=== PATIENT | male | born 1950 | race Caucasian/White ===

== ENCOUNTER 2019-12-11 13:34 | Outpatient (CLI) | payer MEDICARE, SELFPAY ==
--- NOTE | ~2019-12-11 | XR_ITS ---
XR lumbar spine 2-3V DATE: 12/11/2019 14:10 INDICATION: Low back pain TECHNIQUE: AP, lateral, coned lateral lumbosacral views COMPARISON: None FINDINGS: There are bilateral L5 pars interarticularis defects with associated grade 2 anterolisthesi s at L5-S1. There is severe degenerative disc disease at L5-S1. There is moderate degenerative disc disease at L2-3, L3-4. Diffuse osteopenia. No fracture or bone destruction is evident. The included lower thoracic and lumbar pedicles appear in tact. The sacroiliac joints are partially visualized and appear unremarkable. IMPRESSION: Bilateral L5 pars interarticularis defects with associated grade 2 anterolisthesis at L5- S1 Multilevel degenerative disc disease, most severe at L5-S1 Osteopenia Reviewed, dictated and finalized at location B. IMPRESSION: Bilateral L5 pars interarticularis defects with associated grade 2 anterolisthesis at L5-S1 Multilevel degenerative disc disease, most severe at L5-S1 Osteopenia
--- NOTE | ~2019-12-11 | XR_ITS ---
XR sacroiliac joints min 3V DATE: 12/11/2019 14:10 INDICATION: Low back pain TECHNIQUE: AP and bilateral oblique views COMPARISON: None FINDINGS: Severe degenerative disc disease is noted at L5-S1. The sacroiliac joints appear intact, without evidence of fracture, diastases, erosive changes or anky losis. IMPRESSION: Negative sacroiliac joints Severe degenerative disc disease at L5-S1 Reviewed, dictated and finalized at Location A. Reviewed, dictated and finalized at location B.
== END 2019-12-11 13:35 | disposition home or self-care (01) ==
LOC: CHSIMG 13:41
PROVIDERS: PCP Internal Medicine; Visit Provider Internal Medicine
DX: M54.5 Low back pain (principal)
CPT/HCPCS: 72100; 72202

== ENCOUNTER 2020-01-13 17:00 | Outpatient (RCR) | payer MEDICARE, SELFPAY ==
--- NOTE | 2020-01-13 17:48 | PTOPEVAL ---
Thank you for referring Jose Andrade to [facility] [place] [facility] The patient is scheduled to be seen for therapy? ____x/week for ___ weeks. Please review, sign, date and return this plan of care GUIDO. I agree with and certify that the following plan of care is medically necessary. Referring Physician Date Admitting Provider: Attending Provider: Melchor Gonzalez, Referring Provider: *PT Outpatient Evaluation Start: 01/13/20 16:54 Freq: Status: Active Protocol: Document 01/13/20 16:55 ANDREA (Rec: 01/13/20 17:42 ANDREA [id number]) Therapy Assessment Status Assessment Status Assessment Status Evaluation Outpatient Past Medical History Neurological History Hx Neurological Disorders No Significant History Cardiovascular History Hx Hypertension Yes Respiratory History Hx Respiratory Disorders No Significant History Gastrointestinal History Hx Gastrointestinal Disorders No Significant History Genitourinary History Hx Benign Prostatic Hyperplasia Yes Musculoskeletal History Hx Arthritis Yes Hx Back Pain Yes Hx Fractures Yes: LT ANKLE Hx Orthopedic Surgery Yes: LT ANKLE Hematological History Hx Hematological Disorders No Significant History Endocrine History Hx Endocrine Disorders No Significant History HEENT History Hx Sinus Problems Yes Reproductive History Hx Reproductive Disorders No Significant History Psychosocial History Hx Anxiety Yes Pain History Has Past Pain Affected Your Daily Life Yes: BACK Anesthesia History Hx Anesthesia Reactions No Significant History Evaluation Information Problem Diagnosis lumbar spondylosis Onset 11/04/19 Subjective Information Pt. reoprts that he has had Query Text:As Reported By Patient/ several months of sharp pain Family with laying down or standing too long. 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 He states that he can sleep better with a recliner chair. He states that he can still stand for an hour or so, but states that he has trouble with walking. He reports that he has not had any other treatment. He reports that his goal is to decrease his low back pain. Prior Level of Function Activity Level (Last 3 Months) Occupation sales, auctioneer Activity of Daily Living Ability Independent
--- NOTE | 2020-02-26 12:35 | PCPTNOTE ---
Mr. Andrade attended one treatment session on 01/13/20. He has failed to return to the clinic despite attempted follow up calls. He will be discharged from our care at this time. Thank you for the referral of this pt. Rene Shin, MPT
== END 2020-04-12 23:59 | disposition home or self-care (01) ==
LOC: CHSPT 17:00
PROVIDERS: Visit Provider Neurological Surgery
DX: M47.816 Spondylosis without myelopathy or radiculopathy, lumbar region (principal)
CPT/HCPCS: 97110; 97161

== ENCOUNTER 2020-01-15 01:08 | Outpatient (CLI) | payer MEDICARE, SELFPAY ==
[2020-01-15 18:19] LABS: SARS-CoV-2 RNA PCR Negative
== END 2020-01-15 01:09 | disposition home or self-care (01) ==
LOC: ANHCOVIDDT 01:09
PROVIDERS: Visit Provider Internal Medicine Gastroenterology
DX: Z01.812 Encounter for preprocedural laboratory examination (principal); Z20.828 Contact with and (suspected) exposure to other viral communicable diseases
CPT/HCPCS: 87635; C9803; U0003

== ENCOUNTER 2020-01-17 02:05 | Day surgery (SDC) | payer MEDICARE, SELFPAY ==
[2020-01-07 14:09] VITALS: BMI 46.0
[2020-01-17 07:49] VITALS: BP 146/78; PULSE 67; RESP 14; TEMP 36.6; O2SAT 95; BMI 43.7
[2020-01-17] MEDS: LACTATED RINGERS 1,000 ML 150 ML IV CONT (08:10)
--- NOTE | 2020-01-17 08:24 | PM.HPGS ---
History of Present Illness History of Present Illness Consent: Risks, benefits, and alternatives have been discussed and questions answered. Patient agrees to proceed with procedure. Chief complaint: neoplasm screening Narrative: Jose Andrade is a 69 year old male here for first screening colonoscopy Review of Systems Constitutional: Constitutional: Denies headache(s) and Denies weakness Eyes: Eyes: Denies blurry vision ENT: Reports Normal hearing present, Denies headache(s) and Denies neck pain Cardiovascular: Cardiovascular: Denies chest pain and Denies dyspnea Respiratory: Respiratory: Denies dyspnea Gastrointestinal: Gastrointestinal: Reports no additional gastrointestinal complaints Genitourinary: Genitourinary: Denies dysuria Musculoskeletal: Musculoskeletal: Denies neck pain Integumentary/Breasts: Skin/Breast: Denies dry skin Neurologic: Reports Normal hearing present, Denies headache(s) and Denies weakness Psychiatric: Psychiatric: Denies anxiety Endocrine: Endocrine: Denies change in body appearance Hematologic/Lymphatic: Hematologic/Lymphatic: Denies easy bleeding Allergic/Immunologic: Allergic/Immunologic: Denies urticaria [facility] Past Medical History Medical History (Updated 01/17/20 @ 08:24 by Roman Kincaid MD) Colon cancer screening Family History Family History (Updated 11/10/16 @ 09:49 by DOCTOR UNKNOWN) Father Cerebrovascular accident Mother Family history of lung cancer Social History Social History Smoking status: Former smoker Meds Home Medications and Allergies Home Medications Medication Instructions Recorded Confirmed Type alprazolam 0.5 mg PO PRN PRN 01/07/20 01/07/20 History celecoxib 200 mg PO DAILY 01/07/20 01/07/20 History lisinopril-hydrochlorothiazide 1 tablet PO DAILY 01/07/20 01/17/20 History tamsulosin 0.4 mg PO DAILY 01/07/20 01/17/20 History tizanidine [Zanaflex] 4 mg PO DAILY 01/07/20 01/17/20 History tramadol 50 mg PO DAILY 01/07/20 01/07/20 History Allergies Allergy/AdvReac Type Severity Reaction Status Date / Time No Known Allergies Allergy Unverified 01/17/20 07:48 Vital Signs Vital Signs - 24 hr 01/17/20 07:49 Temperature 97.8 F Pulse Rate 67 Respiratory Rate 14 Blood Pressure 146/78 H Pulse Oximetry 95 Exam Const: General: comfortable and no acute distress HENMT: General nose exam: Normal nares present Eyes: General: appearance normal, both eyes and all related structures Neck: Neck: no JVD Resp: Auscultation: clear to auscultation bilaterally Cardio: Rate: regular rate Rhythm: regular rhythm GI: Inspection: non-distended GI Palp: Yes Soft to palpation Skin: General skin exam: normal color Neuro: General: gait normal Speech: normal speech Extrem: General: normal to inspection Psych: Mental Status: mental status grossly normal Assessment and Plan Assessment and plan (1) Colon cancer screening: Code(s): Z12.11 - Encounter for screening for malignant neoplasm of colon Status: Acute Assessment and Plan: will proceed with colonoscopy
--- NOTE | 2020-01-17 08:27 | P.PNAN_ITS ---
Anes - Initial Pre Proc Eval Procedure: Operation Date: 01/17/20 09:30 Proposed Procedures p Screening Colonoscopy - Roman Kincaid MD Date/Time: 01/17/20 08:27 Surgeon: Roman Kincaid MD Pre Op Diagnosis: neoplasm screening Patient Data Age: 69 Gender: M Height: 5 ft 6 in Weight: 123 kg Last Vital Signs Temp 97.8 F 01/17/20 07:49 Pulse 67 01/17/20 07:49 Resp 14 01/17/20 07:49 BP 146/78 H 01/17/20 07:49 Pulse Ox 95 01/17/20 07:49 Allergies Allergy/AdvReac Type Severity Reaction Status Date / Time No Known Allergies Allergy Unverified 01/17/20 07:48 Home Medications Medication Instructions Recorded Confirmed Type alprazolam 0.5 mg PO PRN PRN 01/07/20 01/07/20 History celecoxib 200 mg PO DAILY 01/07/20 01/07/20 History lisinopril-hydrochlorothiazide 1 tablet PO DAILY 01/07/20 01/17/20 History tamsulosin 0.4 mg PO DAILY 01/07/20 01/17/20 History tizanidine [Zanaflex] 4 mg PO DAILY 01/07/20 01/17/20 History tramadol 50 mg PO DAILY 01/07/20 01/07/20 History Patient hx anesthesia problems: none Family hx anesthesia problems: none PMFSH Past Medical History Medical History (Updated 01/17/20 @ 08:27 by Robinson Wolff MD) Anxiety Arthritis Colon cancer screening Hypertension Morbid obesity Family History Family History (Updated 11/10/16 @ 09:49 by DOCTOR UNKNOWN) Father Cerebrovascular accident Mother Family history of lung cancer Social History Social History Smoking status: Former smoker Anes - Eval Final PreProcedure Day of Procedure 01/17/20 08:27 Patient weight: morbidly obese Heart: regular rate and rhythm Lungs: clear to auscultation Airway: Mallampati scale class III Neurological: alert and oriented Last oral intake: >/= 8 hours ASA classification: III Emergent: no Anesthetic plan: proceed Anesthesia type and monitoring: general GIVS and standard monitoring Informed Consent: The patient's anesthetic plan and its attendant risks and b enefits were discussed with the patient/family/POA. Questions were solicited and answers provided to the satisfaction of the patient/family/POA.
[2020-01-17 08:48] VITALS: BP 103/54; PULSE 59; RESP 19; O2SAT 96
[2020-01-17 08:58] VITALS: BP 114/50; PULSE 53; RESP 19; O2SAT 96
[2020-01-17 09:08] VITALS: BP 132/71; PULSE 52; RESP 22; O2SAT 98
== END 2020-01-17 09:24 | disposition home or self-care (01) ==
PROVIDERS: Visit Provider Internal Medicine Gastroenterology
PROC: 0DJD8ZZ Inspection of Lower Intestinal Tract, Via Natural or Artificial Opening Endoscopic (ICD-10-PCS; CPT 45378; principal; 2020-01-17 09:30)
DX: Z12.11 Encounter for screening for malignant neoplasm of colon (principal); D12.2 Benign neoplasm of ascending colon; K63.3 Ulcer of intestine; K57.30 Diverticulosis of large intestine without perforation or abscess without bleeding; K64.8 Other hemorrhoids
CPT/HCPCS: 45385; 45380; 88305; J2704; J7120

== ENCOUNTER 2022-07-05 08:51 | Outpatient (CLI) | payer MEDICARE, SELFPAY ==
--- NOTE | ~2022-07-05 | XR_ITS ---
EXAMINATION: XR chest 2V DATE: 07/05/2022 09:15 INDICATION: Cough and sinus drainage TECHNIQUE: Frontal and lateral views of the chest are obtained COMPARISON: None available FINDINGS: The lungs are free of acute opacities. No pleural effusion or pneumothorax. The cardiomedia stinal silhouette is normal. There is moderate thoracic spondylosis. IMPRESSION: 1. No acute cardiopulmonary abnormality. Reviewed, dictated and finalized at location L. [facility]
[2022-07-05 09:08] LABS: Basophils Absolute Auto 0.04 K/mm3 (0.00-0.10); Basophils Percent Auto 0.4 % (0.0-1.0); Eosinophils Absolute Auto 0.13 K/mm3 (0.02-0.50); Eosinophils Percent Auto 1.4 % (1.0-6.0); Hematocrit 45.1 % (37.0-46.0); Hemoglobin 15.3 g/dL (12.4-15.3); Immature Granulocyte Absolute 0.04 K/mm3 (0.00-0.00); Immature Granulocyte Percent A 0.4 % (0.0-0.0); Lymphocytes Absolute Auto 2.01 K/mm3 (1.10-4.50); Lymphocytes Percent Auto 22.1 % (18.0-42.0); Mean Corpuscular HGB Conc 33.9 g/dL (32.0-36.0); Mean Corpuscular Hemoglobin 31.4 pg (27.0-31.0); Mean Corpuscular Volume 92.4 fL (78.0-102.0); Mean Platelet Volume 10.1 fl (8.7-11.0); Monocytes Absolute Auto 0.64 K/mm3 (0.10-0.90); Neutrophils Absolute Auto 6.2 K/mm3 (1.7-7.2); Neutrophils Percent Auto 68.7 % (50.0-70.0); Platelet Count Result 271 K/mm3 (150-420); Red Blood Count 4.88 M/mm3 (4.70-6.10); Red Cell Distribution Width 12.4 % (11.6-14.4); White Blood Count 9.1 K/mm3 (4.8-10.8)
== END 2022-07-05 08:52 | disposition home or self-care (01) ==
LOC: CHSLAB 08:58
PROVIDERS: PCP Internal Medicine; Visit Provider Internal Medicine
DX: R05.9 Cough, unspecified (principal)
CPT/HCPCS: 36415; 71046; 85025

== ENCOUNTER 2023-02-17 11:25 | Outpatient (CLI) | payer MEDICARE, SELFPAY ==
--- NOTE | ~2023-02-17 | XR_ITS ---
EXAMINATION: XR lumbar spine 2-3V DATE: 02/17/2023 12:04 INDICATION: Low back pain TECHNIQUE: Anteroposterior and lateral views of the lumbar spine, and cone-down lateral view of the l umbosacral junction were obtained. COMPARISON: 12/11/2019 FINDINGS: There are bilateral L5 pars defects with 1.4 cm of unchanged anterolisthesis of L5 on S1. T here is chronic severe loss of intervertebral disc space height at L5-S1. There is moderate loss of i ntervertebral disc space height at L2-3 and L3-4. The vertebral body heights are maintained. There is no acute fracture. IMPRESSION: 1. Bilateral L5 pars defects, spondylolisthesis at L5-S1, and severe lumbar spondylosis without acute findings or significant interval change. Reviewed, dictated and finalized at location F. IMPRESSION: 1. Bilateral L5 pars defects, spondylolisthesis at L5-S1, and severe lumbar spo ndylosis without acute findings or significant interval change.
--- NOTE | ~2023-02-17 | XR_ITS ---
EXAMINATION: XR sacroiliac joints min 3V INDICATION: Low back and bilateral hip pain TECHNIQUE: Three views of the sacroiliac joints are obtained. COMPARISON: 12/11/2019 FINDINGS: Erosion or sclerosis of the sacroiliac joints. There is no fracture. There is severe lumbar spondylos is at L5-S1. Mild osteoarthritis is noted in the hips. IMPRESSION: 1. No acute osseous abnormality. Reviewed, dictated and finalized at location F.
--- NOTE | ~2023-02-17 | XR_ITS ---
EXAMINATION: XR hip BI wo pelvis INDICATION: Bilateral hip pain TECHNIQUE: Two views of each hip are obtained. COMPARISON: None available FINDINGS: Bone alignment is normal. There is no fracture. There is mild osteoarthritis of the hips. IMPRESSION: 1. Mild osteoarthritis of the hips. Reviewed, dictated and finalized at location F.
== END 2023-02-17 11:26 | disposition home or self-care (01) ==
LOC: CHSIMG 11:27
PROVIDERS: PCP Internal Medicine; Visit Provider Internal Medicine
DX: M54.50 Low back pain, unspecified (principal); M25.552 Pain in left hip; M25.551 Pain in right hip; M53.86 Other specified dorsopathies, lumbar region; M43.06 Spondylolysis, lumbar region; M16.0 Bilateral primary osteoarthritis of hip
CPT/HCPCS: 72100; 72202; 73521

== ENCOUNTER 2023-02-20 14:02 | Outpatient (RCR) | payer MEDICARE, SELFPAY ==
--- NOTE | 2023-02-21 07:36 | OPREHPOC ---
Outpatient Therapy Plan of Care This is a Multidisciplinary Plan of Care that may contain components documented by all disciplines (PT, OT, and ST.) PT Problem 1 PT Problem #1 Knowledge Deficit PT Goal 1 Goal Patient will demonstrate independence with HEP Target Visit 6 PT Problem 2 PT Problem #2 Pain PT Goal 1 Goal 1. Patient to report highest pain at 2/10 2. Patient to report ability to stand for >30 min with no increase in L hip pain Target Visit 12 PT Problem 3 PT Problem #3 Impaired Strength PT Goal 1 Goal Patient to demonstrate 4+/5 strength of the L hip to improve ability to get into the car Target Visit 12 PT Problem 4 PT Problem #4 Impaired Functional Mobil PT Goal 1 Goal 1. 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 Patient to report ability to ambulate >30 minutes with no rest due to hip pain Target Visit 12
--- NOTE | 2023-02-21 07:36 | PTOPEVAL1 ---
Assessment and note entered by Court Aleman DPT Evaluation Information Assessment Status Evaluation Diagnosis L sided low back pain, L LE pain Onset 02/17/23 Subjective Information Patient reports over the last month he has been have L sided low back pain and pain down the front of the L LE. He reports he feels like he has difficulty with lifting the L leg. 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 He reports pain is dull. Reported Pain Level Pain Score 6,0: Self Report Assessment PT Clinical Summary Patient is a 72 year old male who presents to PT with L sided low back and hip pain. Patient demonstrates decreased L LE strength, decreased B LE ROM and positive L FADER and FABIR hip testing indicating possible impingement at the L hip. 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 He would benefit from skilled PT to address impairments and return to PLOF. Plan of Care Interventions Electrical Stimulation,Gait Training,Hot Pack/Cold Pack,Manual Therapy,Mechanical Traction,Neuro Re- education,Patient/Caregiver Educati,Therapeutic Activities,Therapeutic Exercise PT Services Indicated Yes Treatment Frequency and 2x weekly for 12 visits Duration These treatments will address the objective and functional deficits as defined above. The patient will be advanced safely and appropriately in order for the patient to progress towards his/her prior level of function. Additional exercises will be introduced and as well as a comprehensive home exercise program upon discharge, if needed, ?to ensure carryover of functional gains achieved in the clinic. This treatment plan has been reviewed and agreement upon by the patient.
--- NOTE | 2023-03-23 10:38 | OPREHPOC ---
Outpatient Therapy Plan of Care This is a Multidisciplinary Plan of Care that may contain components documented by all disciplines (PT, OT, and ST.) PT Problem 1 PT Problem #1 Knowledge Deficit PT Goal 1 Goal Patient will demonstrate independence with HEP Target Visit 6 Progress Met PT Problem 2 PT Problem #2 Pain PT Goal 1 Goal 1. Patient to report highest pain at 2/10 2. Patient to report ability to stand for >30 min with no increase in L hip pain Target Visit 12 Progress Not Met Comment . PT Problem 3 PT Problem #3 Impaired Strength PT Goal 1 Goal Patient to demonstrate 4+/5 strength of the L hip to improve ability to get into the car Target Visit 12 Progress Not Met Comment . PT Problem 4 PT Problem #4 Impaired Functional Mobil PT Goal 1 Goal 1. 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 Patient to report ability to ambulate >30 minutes with no rest due to hip pain Target Visit 12 Progress Not Met Comment .
--- NOTE | 2023-03-23 10:38 | PTOPDC ---
Assessment and note entered by Court Aleman, DPT Evaluation Information Assessment Status Re-evaluation Diagnosis L sided low back pain, L LE pain Onset 02/17/23 Subjective Information Patient reports since start of PT he has not noticed much improvement. 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 He reports that pain varies throughout the day and gets worse as the day goes. Patient reports he has an MD appt scheduled for 04/04/23. Reported Pain Level Pain Score 3,4: Self Report Assessment PT Clinical Summary Mr. Andrade has been seen for 10 visits of skilled PT with minimal progress made. He continues to have pain with getting into and out the truck, standing for long periods of time and ambulating prolonged distances. He reports he has a follow up with MD on 04/04/23. He will be discharged at this time due to minimal progress in POC. Plan of Care PT Services Indicated No
== END 2023-03-23 11:37 | disposition home or self-care (01) ==
LOC: CHSPT 14:02
PROVIDERS: PCP Internal Medicine; Visit Provider Internal Medicine
DX: M54.50 Low back pain, unspecified (principal); M25.552 Pain in left hip
CPT/HCPCS: 97014; 97110; 97150; 97161; G0283

== ENCOUNTER 2024-01-11 08:42 | Outpatient (CLI) | payer MEDICARE, SELFPAY ==
--- NOTE | ~2024-01-11 | US_ITS ---
EXAMINATION: US soft tissue chest DATE: 01/11/2024 09:03 INDICATION: Right chest lump. Right chest pain. TECHNIQUE: Multiple grayscale and Doppler ultrasound images of the chest were obtained. COMPARISON: None FINDINGS: In the right anterior-inferior chest wall, there is a 2.7 x 3.8 x 1.7 cm subcutaneous mass that is isoechoic to subcutaneous fat with similar echotexture. IMPRESSION: 1. 3.8 cm subcutaneous mass in the right anteroinferior chest wall, likely a lipoma. Reviewed, dictated and finalized at location A. IMPRESSION: 1. 3.8 cm subcutaneous mass in the right anteroinferior chest wall, likely a li karyn.
== END 2024-01-11 08:43 | disposition home or self-care (01) ==
LOC: CHSIMG 08:44
PROVIDERS: PCP Nurse Practitioner Family; Visit Provider Nurse Practitioner Family
DX: R07.81 Pleurodynia (principal); L72.0 Epidermal cyst; R22.2 Localized swelling, mass and lump, trunk
CPT/HCPCS: 76604